=== PATIENT | male | born 1935 | race Caucasian/White ===

== ENCOUNTER 2016-12-28 13:20 | Inpatient (IN) | payer MEDICARE ==
[~2016-12-28] VITALS: Ht 177.8 cm; Wt 108.0 kg
[2016-12-28 14:54] LABS: HEMATOCRIT. 43.7 % (42.0-52.0); HEMOGLOBIN. 14.7 g/dL (14.0-18.0); MEAN CORPUSCULAR VOLUME 92.3 fL (80.0-94.0); MEAN PLATELET VOLUME 7.9 fl (7.4-10.4); PLATELET 149 x1000/uL (130-400); RED BLOOD CELL COUNT 4.74 mill/uL (4.7-6.1); RED CELL DISTRIBUTION WIDTH 15.4 % (11.6-14.6)
[2016-12-28 15:00] LABS: BG BASE EXCESS 0.2 mmol/L (-2.0-2.0); BG CARBOXYHEMOGLOBIN 1.2 % (0.5-1.5); BG DEOXYHEMOGLOBIN 5.3 % (0.0-5.0); BG FRACTION INSPIRED OXYGEN 21; BG HCO3 ACT 23.2 mmol/L (22.0-26.0); BG METHEMOGLOBIN 0.2 % (0.0-1.5); BG OXYGEN SATURATION 94.6 % (92.0-98.5); BG OXYHEMOGLOBIN 93.3 % (94.0-97.0); BG PCO2 33.4 mmHg (35.0-45.0); BG PO2 69.1 mmHg (75.0-100.0); BG SAMPLE SITE RIGHT RADIAL; BG TOTAL HEMOGLOBIN 15.4 g/dL (12.0-18.0); BG VENT MODE ROOM AIR
[2016-12-28 15:02] LABS: INR 1.1; PROTHROMBIN TIME 11.1 sec (9.4-11.6)
[2016-12-28 15:07] LABS: CARBON DIOXIDE 29 mEq/L (21-32); CHLORIDE 102 mEq/L (98-107)
[2016-12-28 15:11] LABS: TROPONIN I < 0.02 ng/mL (0.00-0.04)
[2016-12-28 15:22] LABS: PLATELET ESTIMATE NORMAL
[2016-12-28] MEDS ORDERED: DIPHENHYDRAMINE 50MG/ML VIAL IV PRN (21:45)
[2016-12-28] MEDS ORDERED: MAGNESIUM/ALUMINUM HYDROXIDE/SIMETHICONE 30ML UDC PO PRN (21:45)
[2016-12-28] MEDS ORDERED: ONDANSETRON HCL 4MG/2ML VIAL IV PRN (21:45)
[2016-12-28] MEDS ORDERED: ACETAMINOPHEN 325MG TABLET PO PRN (21:45)
[2016-12-28] MEDS ORDERED: IPRATROPIUM/ALBUTEROL 0.5-3(2.5)MG/3ML NEB INH PRN (21:45)
[2016-12-28 22:40] VITALS: BP 101/58
[2016-12-29] VITALS (8 sets, daily range): BP systolic 91–195; BP diastolic 30–106
[2016-12-29] MEDS ORDERED: ESCI5TAB PO (00:51)
[2016-12-29] MEDS ORDERED: ASCO500C6 MT (01:24)
[2016-12-29] MEDS ORDERED: CHOL100046 PO (01:24)
[2016-12-29] MEDS ORDERED: OLAN5TAB26 PO (01:24)
[2016-12-29] MEDS ORDERED: LEVO75TA PO (01:24)
[2016-12-29] MEDS ORDERED: TERA2CAP4 PO (01:24)
[2016-12-29] MEDS ORDERED: DEPER5 PO (01:24)
[2016-12-29] MEDS: SODIUM CHLORIDE 0.9% INJ 3ML FLUSH IVF SCH ×3 (06:00→21:46)
[2016-12-29] MEDS: FUROSEMIDE 40MG/4ML VIAL IVP SCH (09:21)
[2016-12-29] MEDS: ENOXAPARIN 40MG/0.4ML SYR SUBCUT SCH (09:22)
[2016-12-29] MEDS: LOSARTAN POTASSIUM 25 MG TABLET PO SCH (11:15)
[2016-12-29 15:26] LABS: CREATINE KINASE 53 IU/L (39-308); CREATINE KINASE MB FRACTION 1.6 ng/mL (0.5-3.6); HDL CHOLESTEROL 44 mg/dL (40-59); LDL CHOLESTEROL 79 mg/dL (5-100); T4 FREE 0.87 ng/dL (0.76-1.46); TROPONIN I < 0.02 ng/mL (0.00-0.04)
[2016-12-29] MEDS: IPRATROPIUM/ALBUTEROL 0.5-3(2.5)MG/3ML NEB HHN SCH ×2 (15:48→21:19)
[2016-12-29 23:22] LABS: CREATINE KINASE 43 IU/L (39-308); TROPONIN I < 0.02 ng/mL (0.00-0.04)
[2016-12-30] VITALS: BP 119/45
[2016-12-30] MEDS: IPRATROPIUM/ALBUTEROL 0.5-3(2.5)MG/3ML NEB HHN SCH ×4 (02:07→20:22)
[2016-12-30 04:00] VITALS: BP 132/56
[2016-12-30] MEDS: SODIUM CHLORIDE 0.9% INJ 3ML FLUSH IVF SCH ×3 (06:09→21:39)
[2016-12-30 06:23] LABS: BASOPHILS % 0.3 % (0.0-2.0); EOSINOPHILS % 1.6 % (0.0-5.0); HEMATOCRIT. 41.6 % (42.0-52.0); LYMPHOCYTES % 30.2 % (20.0-50.0); MEAN CORPUSCULAR HEMOGLOBIN 31.2 pg (28.0-32.0); MEAN CORPUSCULAR VOLUME 92.4 fL (80.0-94.0); MEAN PLATELET VOLUME 7.6 fl (7.4-10.4); MONOCYTES % 12.1 % (2.0-8.0); NEUTROPHILS % 55.8 % (40.0-76.0); PLATELET 156 x1000/uL (130-400); RED CELL DISTRIBUTION WIDTH 15.4 % (11.6-14.6)
[2016-12-30 06:58] LABS: CREATINE KINASE 41 IU/L (39-308)
[2016-12-30 07:06] LABS: TROPONIN I < 0.02 ng/mL (0.00-0.04)
[2016-12-30 08:00] VITALS: BP 125/59
[2016-12-30] MEDS: ENOXAPARIN 40MG/0.4ML SYR SUBCUT SCH (09:35)
[2016-12-30] MEDS: FUROSEMIDE 40MG/4ML VIAL IVP SCH (09:35)
[2016-12-30] MEDS: LOSARTAN POTASSIUM 25 MG TABLET PO SCH (09:35)
[2016-12-30 12:00] VITALS: BP 118/71
[2016-12-30 16:00] VITALS: BP 103/58
[2016-12-30] MEDS: CEFEPIME 1,000 MG in DEXTROSE 5% WATER 50 ML IV SCH (17:35)
[2016-12-30 20:00] VITALS: BP 118/52
[2016-12-30] MEDS: GUAIFENESIN 600MG ER TABLET PO SCH (21:39)
[2016-12-31] VITALS: BP 128/60
[2016-12-31] MEDS: IPRATROPIUM/ALBUTEROL 0.5-3(2.5)MG/3ML NEB HHN SCH ×5 (01:14→19:46)
[2016-12-31 04:00] VITALS: BP 132/59
[2016-12-31] MEDS: SODIUM CHLORIDE 0.9% INJ 3ML FLUSH IVF SCH ×3 (05:53→21:56)
[2016-12-31] MEDS: CEFEPIME 1,000 MG in DEXTROSE 5% WATER 50 ML IV SCH ×2 (05:53→17:56)
[2016-12-31] MEDS: LEVOTHYROXINE SODIUM 88MCG TABLET PO SCH (05:53)
[2016-12-31 07:34] VITALS: BP 121/63
[2016-12-31 07:52] LABS: CARBON DIOXIDE 28 mEq/L (21-32); CHLORIDE 101 mEq/L (98-107)
[2016-12-31] MEDS: LOSARTAN POTASSIUM 25 MG TABLET PO SCH (08:24)
[2016-12-31] MEDS: FUROSEMIDE 40MG/4ML VIAL IVP SCH (08:24)
[2016-12-31] MEDS: ENOXAPARIN 40MG/0.4ML SYR SUBCUT SCH (08:24)
[2016-12-31] MEDS: GUAIFENESIN 600MG ER TABLET PO SCH ×2 (08:45→20:29)
[2016-12-31 12:00] VITALS: BP 128/71
[2016-12-31 16:00] VITALS: BP 117/43
[2016-12-31 20:00] VITALS: BP 131/59
[2017-01-01] VITALS (7 sets, daily range): BP systolic 111–129; BP diastolic 45–94
[2017-01-01] MEDS: IPRATROPIUM/ALBUTEROL 0.5-3(2.5)MG/3ML NEB HHN SCH ×3 (00:47→14:17)
[2017-01-01] MEDS: CEFEPIME 1,000 MG in DEXTROSE 5% WATER 50 ML IV SCH ×2 (05:09→18:31)
[2017-01-01] MEDS: SODIUM CHLORIDE 0.9% INJ 3ML FLUSH IVF SCH ×2 (05:09→14:55)
[2017-01-01] MEDS: LEVOTHYROXINE SODIUM 88MCG TABLET PO SCH (06:02)
[2017-01-01] MEDS: GUAIFENESIN 600MG ER TABLET PO SCH (09:09)
[2017-01-01] MEDS: ENOXAPARIN 40MG/0.4ML SYR SUBCUT SCH (09:09)
[2017-01-01] MEDS: FUROSEMIDE 40MG/4ML VIAL IVP SCH (09:09)
[2017-01-01] MEDS: LOSARTAN POTASSIUM 25 MG TABLET PO SCH (09:10)
[2017-01-02] MEDS ORDERED: ENOXAPARIN 30MG/0.3ML SYR SUBCUT SCH (09:00)
== END 2017-01-01 20:28 | DRG 177 ==
LOC: ER 13:20 → 5WST 19:09 → EDBEDREQ 19:13 → ENRESERV 20:03
PROVIDERS: ADMIT Internal Medicine; ATTEND Internal Medicine
DX: J69.0 Pneumonitis due to inhalation of food and vomit (principal); J96.01 Acute respiratory failure with hypoxia; I50.43 Acute on chronic combined systolic (congestive) and diastolic (congestive) heart failure; J98.11 Atelectasis; F29 Unspecified psychosis not due to a substance or known physiological condition; I48.2 Chronic atrial fibrillation; I11.0 Hypertensive heart disease with heart failure; E03.9 Hypothyroidism, unspecified; I48.91 Unspecified atrial fibrillation; Z85.828 Personal history of other malignant neoplasm of skin; Z82.49 Family history of ischemic heart disease and other diseases of the circulatory system; Z86.73 Personal history of transient ischemic attack (TIA), and cerebral infarction without residual deficits; Z79.899 Other long term (current) drug therapy
CPT/HCPCS: 36415; 36600; 71010; 80048; 80053; 80061; 82375; 82550; 82553; 82805; 83036; 83735; 83880; 84439; 84443; 84484; 85025; 85379; 85610; 93005; 93306; 93970; 94640; 94664; 97162; 99291; A6261; J0692; J1650; J1940; J7040; J7060; J7620